=== PATIENT | female | born 1995 | race African-American/Black ===

== ENCOUNTER 2019-12-15 09:40 | Emergency (ER) | payer MEDICAID, OTHER ==
[~2019-12-15 09:40] MED LIST: ACETAMINOPHEN 500 MG TAB As Ordered ONE; ACETAMINOPHEN 500 MG TAB ONE; AUGMENTIN 875 MG TAB As Ordered ONE; AUGMENTIN 875 MG TAB ONE; BENZOCAINE 20% GEL 9GM TUBE (ANBESOL MAX STRENGTH) As Ordered ONE; BENZOCAINE 20% GEL 9GM TUBE (ANBESOL MAX STRENGTH) ONE
== END 2019-12-15 09:42 | disposition home or self-care (01) ==
LOC: M ED 09:40
DX: K02.9 Dental caries, unspecified (principal); K05.6 Periodontal disease, unspecified; Z91.010 Allergy to peanuts

== ENCOUNTER 2020-01-14 05:44 | Emergency (ER) | payer OTHER ==
[~2020-01-14] VITALS: Ht 172.7 cm; Wt 102.0 kg
[2020-01-14] MEDS ORDERED: METOCLOPRAMIDE INJ 10MG/2ML VIAL (J2765 PER 1) As Ordered ONE (06:44)
[2020-01-14] MEDS ORDERED: METOCLOPRAMIDE INJ 10MG/2ML VIAL (J2765 PER 1) IV ONE (06:45)
[2020-01-14 06:57] LABS: BASO % 0.2 % (0.0-1.0); HEMOGLOBIN 11.5 g/dl (12.0-15.5); LYMPH % 7.2 % (24.0-44.0); MEAN CORPUSCULAR HEMOGLOBIN 25.7 pg (27.0-33.0); MEAN CORPUSCULAR HGB CONC 31.9 g/dl (32.0-36.5); MEAN CORPUSCULAR VOLUME 80.4 fl (80.0-96.0); MONO # 0.4 10^3/uL (0.0-0.8); MONO % 2.9 % (0.0-5.0); NEUTROPHILS % 89.2 % (36.0-66.0); PLATELET COUNT, AUTOMATED 265 10^3/uL (150-450); RED BLOOD COUNT 4.48 10^6/uL (4.00-5.40); WHITE BLOOD COUNT 13.4 10^3/uL (4.0-10.0)
[2020-01-14] MEDS ORDERED: ACETAMINOPHEN 325 MG TAB PO ONE (07:00)
[2020-01-14 07:21] LABS: HCG, SERUM QUALITATIVE POSITIVE (NEGATIVE)
[2020-01-14 07:42] LABS: ALBUMIN 4.3 GM/DL (3.2-5.2); ALT/SGPT 19 U/L (12-78); BILIRUBIN,DIRECT < 0.1 MG/DL (0.0-0.2); BILIRUBIN,TOTAL 0.5 MG/DL (0.2-1.0); BLOOD UREA NITROGEN 10 MG/DL (7-18); CALCIUM LEVEL 9.8 MG/DL (8.5-10.1); CARBON DIOXIDE LEVEL 21 MEQ/L (21-32); CHLORIDE LEVEL 105 MEQ/L (98-107); GLOMERULAR FILTRATION RATE > 60.0 (>60); GLUCOSE, FASTING 128 MG/DL (70-100); LIPASE 76 U/L (73-393); POTASSIUM SERUM 4.1 MEQ/L (3.5-5.1); SODIUM LEVEL 137 MEQ/L (136-145); TOTAL PROTEIN 8.4 GM/DL (6.4-8.2)
[2020-01-14] MEDS ORDERED: NS 1,000 ML IV ONE (07:45)
--- NOTE | 2020-01-14 08:05 | REPVR ---
PROCEDURE INFORMATION: Exam: US First Trimester, Transabdominal Exam date and time: 01/14/2020 7:51 AM Age: 24 years old Clinical indication: complicated by abdominal or pelvic pain; Lower; First trimester; Gestational age or lmp: 7; ; Additional info: Lower abd pain, positive hcg TECHNIQUE: Imaging protocol: Real-time transabdominal obstetrical ultrasound of the maternal pelvis and a first trimester , less than 14 weeks 0 days, with image documentation. COMPARISON: No relevant prior studies available. FINDINGS: Gestation: Single live intrauterine gestation. Embryonic/ heart rate: heart rate measures 123 bpm. Placenta: Unremarkable. No subchorionic bleed. Amniotic fluid: Amniotic fluid is normal for gestational age. BIOMETRY: Gestational age (AUA): Estimated gestational age is 7 weeks 0 days. Estimated due date (AUA): Estimated due date is 09/01/2020 [place]-Rump length: Stone[place]st-rump length measures 9.2 mm. MATERNAL: Uterus: Unremarkable. Cervix: Unremarkable. Right adnexa: Right ovary measures 1.8 x 2.1 x 1.7 cm. No masses. Normal venous flow. Left adnexa: Left ovary measures 2.9 x 2.4 x 1.9 cm. Cyst in the left ovary measuring 1.4 x 1.2 x 1.3 cm. Normal vascular flow in the left ovary. Intraperitoneal space: No intraperitoneal free fluid. IMPRESSION: 1. Single live intrauterine gestation. 2. Estimated gestational age is 7 weeks 0 days. 3. Estimated due date is 09/01/2020. 4. Cyst in the left ovary. No follow-up is necessary. Electronically signed by: Ginger Franco On 01/14/2020 08:04:37 AM
[2020-01-14 08:31] LABS: HCG, SERUM QUANTITATIVE 44985 MIU/ML
[2020-01-14] MEDS ORDERED: ONDA4TAB6 PO (09:02)
[2020-01-14 09:12] VITALS: BP 130/76
[2020-01-14 09:41] LABS: AMPHETAMINES LEVEL URINE NEGATIVE (NEGATIVE); BARBITURATES URINE NEGATIVE (NEGATIVE); BENZODIAZEPINES URINE NEGATIVE (NEGATIVE); CANNABINOIDS URINE POSITIVE (NEGATIVE); COCAINE METABOLITE URINE NEGATIVE (NEGATIVE); METHADONE URINE NEGATIVE (NEGATIVE); OPIATES URINE NEGATIVE (NEGATIVE); PHENCYCLIDINE URINE NEGATIVE (NEGATIVE)
== END 2020-01-14 09:15 | disposition home or self-care (01) ==
LOC: M ED 05:44
DX: O99.89 Other specified diseases and conditions complicating pregnancy, childbirth and the puerperium (principal); O34.81 Maternal care for other abnormalities of pelvic organs, first trimester; N83.202 Unspecified ovarian cyst, left side; O99.111 Other diseases of the blood and blood-forming organs and certain disorders involving the immune mechanism complicating pregnancy, first trimester; D72.829 Elevated white blood cell count, unspecified; O99.321 Drug use complicating pregnancy, first trimester; F12.288 Cannabis dependence with other cannabis-induced disorder; Z3A.01 Less than 8 weeks gestation of pregnancy; O99.331 Smoking (tobacco) complicating pregnancy, first trimester; F17.210 Nicotine dependence, cigarettes, uncomplicated
CPT/HCPCS: 76801; 80048; 80076; 80307; 81001; 83690; 84702; 84703; 85025; 93976; 96361; 96374; 99284; J2765

== ENCOUNTER 2023-03-08 00:35 | Outpatient (CLI) | payer OTHER ==
[2023-03-08] VITALS (10 sets, daily range): BP systolic 124–155; BP diastolic 80–105; TEMP 98.3
[~2023-03-08] VITALS: Ht 172.7 cm; Wt 100.5 kg
[~2023-03-08 00:35] MED LIST changes: -ACETAMINOPHEN 500 MG TAB As Ordered ONE; -ACETAMINOPHEN 500 MG TAB ONE; -AUGMENTIN 875 MG TAB As Ordered ONE; -AUGMENTIN 875 MG TAB ONE; -BENZOCAINE 20% GEL 9GM TUBE (ANBESOL MAX STRENGTH) As Ordered ONE; -BENZOCAINE 20% GEL 9GM TUBE (ANBESOL MAX STRENGTH) ONE; +ONDA4TAB6 PO
[2023-03-08] MEDS ORDERED: PROMETHAZINE 25MG/ML 1ML VIAL IV ONE (01:45)
[2023-03-08] MEDS ORDERED: LR 1,000 ML IV ONE (01:45)
[2023-03-08 02:28] LABS: HEMATOCRIT 33.1 % (36.0-47.0); HEMOGLOBIN 11.2 g/dl (12.0-15.5); MEAN CORPUSCULAR HEMOGLOBIN 30.7 pg (27.0-33.0); MEAN CORPUSCULAR HGB CONC 33.8 g/dl (32.0-36.5); MEAN CORPUSCULAR VOLUME 90.7 fl (80.0-96.0); PLATELET COUNT, AUTOMATED 200 10^3/uL (150-450); RED BLOOD COUNT 3.65 10^6/uL (4.00-5.40); WHITE BLOOD COUNT 11.6 10^3/uL (4.0-10.0)
[2023-03-08 02:51] LABS: LIPASE 31 U/L (12-53)
[2023-03-08 02:53] LABS: BLOOD UREA NITROGEN 5 MG/DL (9-23); CALCIUM LEVEL 8.7 MG/DL (8.5-10.1); CARBON DIOXIDE LEVEL 21 MMOL/L (20-31); CHLORIDE LEVEL 106 MMOL/L (98-107); CREATININE FOR GFR 0.47 MG/DL (0.55-1.30); GLOMERULAR FILTRATION RATE > 60.0 (>60); GLUCOSE, FASTING 72 MG/DL (60-100); POTASSIUM SERUM 3.6 MMOL/L (3.5-5.1); SODIUM LEVEL 138 MMOL/L (136-145)
[2023-03-08] MEDS ORDERED: MORPHINE 10 MG/ML 1ML VIAL IV ONE (04:00)
[2023-03-08] MEDS ORDERED: MORPHINE 10 MG/ML 1ML VIAL IV PRN (06:15)
[2023-03-08] MEDS ORDERED: LACTATED RINGER'S 1000 ML IV STA (06:16)
[2023-03-08] MEDS ORDERED: LR 1,000 ML IV SCH (06:20)
[2023-03-08] MEDS ORDERED: PROMETHAZINE 25MG/ML 1ML VIAL IV PRN (07:00)
[2023-03-08 07:30] LABS: AMPHETAMINES URINE REFLEX NEGATIVE (NEGATIVE); BARBITURATES URINE REFLEX NEGATIVE (NEGATIVE); BENZODIAZEPINES URINE REFLEX NEGATIVE (NEGATIVE); COCAINE METABOLITE URINE REFLE NEGATIVE (NEGATIVE); METHADONE URINE REFLEX NEGATIVE (NEGATIVE); OPIATES URINE REFLEX NEGATIVE (NEGATIVE); PHENCYCLIDINE URINE REFLEX NEGATIVE (NEGATIVE)
[2023-03-08 07:38] LABS: CANNABINOIDS URINE REFLEX PENDING CONFIRMATION (NEGATIVE)
[2023-03-08] MEDS: ONDANSETRON 4MG 2ML VIAL IV PRN ×2 (10:00→13:57)
[2023-03-08] MEDS ORDERED: PANTOPRAZOLE 40MG VIAL IV ONE (12:00)
[2023-03-08] MEDS ORDERED: ONDA4TAB6 PO (13:54)
[2023-03-08] MEDS ORDERED: REGL5TAB2 PO (13:55)
[2023-03-08] MEDS ORDERED: OMEP40CA4 PO (13:55)
== END 2023-03-08 13:05 | disposition home or self-care (01) ==
LOC: M LDO 00:35
PROVIDERS: ATTEND Obstetrics & Gynecology
DX: O21.8 Other vomiting complicating pregnancy (principal); R10.30 Lower abdominal pain, unspecified; O26.893 Other specified pregnancy related conditions, third trimester; Z3A.28 28 weeks gestation of pregnancy; O99.323 Drug use complicating pregnancy, third trimester; F12.10 Cannabis abuse, uncomplicated
CPT/HCPCS: 59025; 80048; 80307; 83690; 85027; 96374; 96375; 96376; C9113; G0463; G0480; J2405; J2550

== ENCOUNTER → 2023-09-10 | Outpatient (REF) ==
[~2023-09-10] MED LIST changes: +OMEP40CA4 PO; +REGL5TAB2 PO
== END ==
LOC: M LAB 12:58
PROVIDERS: ATTEND Nurse Practitioner Adult Health
DX: Z02.89 Encounter for other administrative examinations (principal)